=== PATIENT | male | born 1980 | race Caucasian/White ===

== ENCOUNTER 2022-01-05 01:27 | Emergency (ER) | payer BC ==
[2022-01-05] MEDS ORDERED: Sodium Chloride 0.9% 10 ML Syringe FLUSH PRN (02:08)
[2022-01-05 02:35] LABS: ANION GAP 11.7 mEq/L (7-13); CHLORIDE,CL 103 mmol/L (98-107); SODIUM,NA 141 mmol/L (136-145)
[2022-01-05] MEDS: Ketorolac 30 MG/ML SDV IVPUSH ONE (03:43)
== END 2022-01-05 03:50 | disposition home or self-care (01) ==
LOC: DL.ED 01:27
DX: M94.0 Chondrocostal junction syndrome [Tietze] (principal); Z20.822 Contact with and (suspected) exposure to COVID-19
CPT/HCPCS: 36415; 71045; 80053; 80307; 82150; 83690; 84443; 84484; 85025; 85379; 86140; 87635; 93005; 96374; 99285; J1885; U0002